=== PATIENT | female | born 2000 | race Caucasian/White ===

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

== ENCOUNTER 2020-01-22 01:02 | Emergency (ER) | payer MEDICAID ==
[2020-01-22] MEDS ORDERED: Diphtheria,Pertussis(Acell),Tetanus Vaccine 0.5 ML Syringe IM ONE (01:30)
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
--- NOTE | 2020-01-22 02:41 | CR ---
INDICATION: Puncture wound TECHNIQUE: Three views left hand COMPARISON: None FINDINGS: Bones: Alignment is normal. No fractures or bone lesions. Joint spaces: Unremarkable. Soft tissues: Unremarkable. IMPRESSION: No radiopaque foreign bodies. Dictated by Rodrick Lomeli MD @ 01/22/2020 2:39:29 AM Dictated by: Rodrick Lomeli MD @ 01/22/2020 02:39:35 (Electronically Signed)
[2020-01-22 02:55] VITALS: BP 112/70; PULSE 80
== END 2020-01-22 02:53 | disposition home or self-care (01) ==
LOC: MW.ED 01:02
DX: S61.432D Puncture wound without foreign body of left hand, subsequent encounter (principal); Z88.1 Allergy status to other antibiotic agents; Z88.8 Allergy status to other drugs, medicaments and biological substances; Z79.899 Other long term (current) drug therapy; Z23 Encounter for immunization; W45.8XXD Other foreign body or object entering through skin, subsequent encounter
CPT/HCPCS: 73130-26-LT; 73130-LT; 90471; 90715; 99283-25; 99284

== ENCOUNTER 2020-01-22 06:02 | Emergency (ER) | payer MEDICAID ==
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
[2020-01-22 06:59] VITALS: BP 118/76; PULSE 96
== END 2020-01-22 06:40 | disposition home or self-care (01) ==
LOC: MW.ED 06:02
DX: S61.432D Puncture wound without foreign body of left hand, subsequent encounter (principal); Z88.1 Allergy status to other antibiotic agents; Z88.8 Allergy status to other drugs, medicaments and biological substances; Z79.899 Other long term (current) drug therapy; W22.8XXD Striking against or struck by other objects, subsequent encounter
CPT/HCPCS: 99283

== ENCOUNTER 2020-06-29 13:52 | Emergency (ER) | payer MEDICAID ==
--- NOTE | 2020-06-29 14:06 | EDM.PDOC ---
ED HPI GENERAL MEDICAL PROBLEM - General Chief Complaint: Chest Pain Stated Complaint: CHEST PAINS Time Seen by Provider: 06/29/20 14:00 Source of Information: Reports: Patient History Limitations: Reports: No Limitations - History of Present Illness INITIAL COMMENTS - FREE TEXT/NARRATIVE: HISTORY AND PHYSICAL: History of present illness: Patient is a 19-year-old female who presents to the emergency room with complaints of midsternal chest pain x2 days. She states the pain is constant but worse with taking in deep breaths. She has had a dry nonproductive cough, infrequent. Patient denies any fever, chills, headache, change in vision, syncope or near syncope. Denies any neck stiffness/pain, back pain, abdominal pain, nausea, vomiting, diarrhea, constipation or dysuria. Has not noted any blood in urine or stool. She denies any concern of . Patient has been eating and drinking appropriately. Review of systems: As per history of present illness and below otherwise all systems reviewed and negative. Past medical history: As per history of present illness and as reviewed below otherwise noncontributory. Surgical history: As per history of present illness and as reviewed below otherwise noncontributory. Social history: See social history for further information Family history: As per history of present illness and as reviewed below otherwise noncontributory. Physical exam: General: Well developed and well nourished. Alert and orientated x 3. Nontoxic in appearance and in no acute distress. Vital signs are stable and have been reviewed by me. Nursing notes were reviewed. HEENT: Atraumatic, normocephalic, pupils equal and reactive bilaterally, negative for conjunctival pallor or scleral icterus, mucous membranes moist, TMs normal bilaterally, throat clear, neck supple, nontender, trachea midline. No drooling or trismus noted. No meningeal signs. No hot potato voice noted. Lungs: Clear to auscultation, breath sounds equal bilaterally, chest nontender. Normal work of breathing, no accessory muscles used. Heart: S1S2, regular rate and rhythm without overt murmur Abdomen: Soft, nondistended, nontender. Negative for masses or hep atosplenomegaly. Negative for costovertebral tenderness. Skin: Intact, warm, dry. No lesions or rashes noted. Hematologic: No petechiae or purpra. Mucosa appropriate color and normal nail bed color and refill. Extremities: Atraumatic, moves all extremities per self without difficulty or deficits, negative for cords or calf pain. Neurovascular unremarkable. Neuro: Awake, alert, oriented. Cranial nerves II through XII unremarkable. Cerebellum unremarkable. Motor and sensory unremarkable throughout. Exam nonfocal. Psychiatric: Mood and affect are appropriate. Normal thought process. Answering questions appropriately. Notes: Lab work, EKG, chest x-ray and COVID-19 are normal. Vital signs remained stable. I have spoken with the patient/caregiver and discussed today's findings, in addition to providing specific details for plan of care. Reassessment at the time of disposition demonstrates that the patient is in no acute distress. The patient is stable for discharge, counseling was provided and we discussed in great detail signs and symptoms that would prompt them to return to the Emergency Department. Medication, follow up and supportive care measures were reviewed and discussed. Voices understanding and is agreeable to plan of care. Denies any further questions or concerns at this time. Diagnostics: CBC, CMP, Troponin, EKG, COVID Therapeutics: None Prescription: None Impression: Chest Pain, non-specific Plan: 1. Today your lab work, EKG, chest x-ray and COVID are normal. 2. Alternate Tylenol and Ibuprofen as needed for pain management. 3. We encourage you to follow up with your primary care provider and/or recommended specialist in the next few days for re-evaluation and further care/management. If your symptoms should worsen, new symptoms develop or any of the signs and symptoms we discussed should arise please return to the emergency room or call 911 (if needed). Definitive disposition and diagnosis as appropriate pending reevaluation and review of above. chest Pain Score (Numeric/FACES): 5 - Related Data Allergies Allergy/AdvReac Type Severity Reaction Status Date / Time amoxicillin trihydrate Allergy Hives Verified 06/29/20 14:03 [From Augmentin] chlorpheniramine Allergy Hives Verified 06/29/20 14:03 [From Triaminic Cold/Cough] dextromethorphan HBr Allergy Hives Verified 06/29/20 14:03 [From Triaminic Cold/Cough] phenylephrine HCl Allergy Hives Verified 06/29/20 14:03 [From Triaminic Cold/Cough] potassium clavulanate Allergy Hives Verified 06/29/20 14:03 [From Augmentin] pseudoephedrine HCl Allergy Hives Verified 06/29/20 14:03 [From Triaminic Cold/Cough] Home Meds: Home Meds . 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 Musculoskeletal History: Reports: None Neurological History: Reports: None Psychiatric History: Reports: None Endocrine/Metabolic History: Reports: None Hematologic History: Reports: None Immunologic History: Reports: None Oncologic (Cancer) History: Reports: None Dermatologic History: Reports: None - Infectious Disease History Infectious Disease History: Reports: Chicken Pox Other Infectious Disease History: childhood - Past Surgical History Head Surgeries/Procedures: Reports: None HEENT Surgical History: Reports: Oral Surgery, Tonsillectomy Cardiovascular Surgical History: Reports: None Respiratory Surgical History: Reports: None GI Surgical History: Reports: None Female Surgical History: Reports: None Endocrine Surgical History: Reports: None Neurological Surgical History: Reports: None Musculoskeletal Surgical History: Reports: None Oncologic Surgical History: Reports: None Dermatological Surgical History: Reports: None Social & Family History - Family History Family Medical History: Noncontributory - Caffeine Use Caffeine Use: Reports: None ED ROS GENERAL - Review of Systems Review Of Systems: Comprehensive ROS is negative, except as noted in HPI. ED EXAM, GENERAL - Physical Exam Exam: See Below (See dictation) Course - Vital Signs Last Recorded V/S: Last Vital Signs Temp 98.3 F 06/29/20 14:04 Pulse 77 06/29/20 14:04 Resp 18 06/29/20 14:04 BP 117/70 06/29/20 14:04 Pulse Ox 98 06/29/20 14:04 - Orders/Labs/Meds Orders: Active Orders 24 hr Category Date Time Status EKG Documentation Completion [RC] STAT Care 06/29/20 14:03 Active CORONAVIRUS COVID-19 PCR PHL Stat Lab 06/29/20 14:13 Received Labs: Laboratory Tests 06/29/20 06/29/20 06/29/20 Range/Units 14:13 14:20 14:20 WBC 5.67 (4.0-11.0) K/uL RBC 4.70 (4.30-5.90) M/uL Hgb 13.9 (12.0-16.0) g/dL Hct 40.7 (36.0-46.0) % MCV 86.6 (80.0-98.0) fL MCH 29.6 (27.0-32.0) pg MCHC 34.2 (31.0-37.0) g/dL RDW Std Deviation 37.9 (28.0-62.0) fl RDW Coeff of Alessio 12 (11.0-15.0) % Plt Count 194 (150-400) K/uL MPV 10.00 (7.40-12.00) fL Neut % (Auto) 50.6 (48.0-80.0) % Lymph % (Auto) 40.2 H (16.0-40.0) % Dare % (Auto) 7.6 (0.0-15.0) % Eos % (Auto) 1.2 (0.0-7.0) % Baso % (Auto) 0.4 (0.0-1.5) % Neut # (Auto) 2.9 (1.4-5.7) K/uL Lymph # (Auto) 2.3 (0.6-2.4) K/uL Dare # (Auto) 0.4 (0.0-0.8) K/uL Eos # (Auto) 0.1 (0.0-0.7) K/uL Baso # (Auto) 0.0 (0.0-0.1) K/uL Nucleated RBC % 0.0 /100WBC Nucleated RBCs # 0 K/uL Sodium 138 (136-145) mmol/L Potassium 4.2 (3.5-5.1) mmol/L Chloride 103 (98-107) mmol/L Carbon Dioxide 25.3 (21.0-32.0) mmol/L BUN 10 (7.0-18.0) mg/dL Creatinine 0.7 (0.6-1.0) mg/dL Est Cr Clr Drug Dosing 111.62 mL/min Estimated GFR (MDRD) > 60.0 ml/min Glucose 89 (74-106) mg/dL Calcium 9.0 (8.5-10.1) mg/dL Total Bilirubin 1.3 H (0.2-1.0) mg/dL AST 14 L (15-37) IU/L ALT 16 (14-63) IU/L Alkaline Phosphatase 63 (46-116) U/L Troponin I < 0.050 (0.000-0.056) ng/mL Total Protein 7.1 (6.4-8.2) g/dL Albumin 4.3 (3.4-5.0) g/dL Globulin 2.8 (2.6-4.0) g/dL Albumin/Globulin Ratio 1.5 (0.9-1.6) SARS CoV-2 RNA Rapid RENARD NEGATIVE (NEGATIVE) Departure - Departure Time of Disposition: 15:09 Disposition: Home, Self-Care 01 Clinical Impression: Nonspecific chest pain Instructions: Nonspecific Chest Pain, Adult, [id number] Referrals: PCP,None [Primary Care Provider] - Forms: ED Department Discharge Additional Instructions: The following information is given to patients seen in the emergency department who are being discharged to home. This information is to outline your options for follow-up care. We provide all patients seen in our emergency department with a follow-up referral. The need for follow-up, as well as the timing and circumstances, are variable depending upon the specifics of your emergency department visit. If you don't have a primary care physician on staff, we will provide you with a referral. We always advise you to contact your personal physician following an emergency department visit to inform them of the circumstance of the visit and for follow-up with them and/or the need for any referrals to a consulting specialist. The emergency department will also refer you to a specialist when appropriate. This referral assures that you have the opportunity for follow-up care with a specialist. All of these measure are taken in an effort to provide you with o ptimal care, which includes your follow-up. Under all circumstances we always encourage you to contact your private physician who remains a resource for coordinating your care. When calling for follow-up care, please make the office aware that this follow-up is from your recent emergency room visit. If for any reason you are refused follow-up, please contact the [facility] Emergency Department at and asked to speak to the emergency department charge nurse. [facility] [address] [place] [address] [facility] [address] [place] [address] Thank you for choosing the [facility] emergency department in [place] for your medical needs today. It was a pleasure caring for you. Today you were seen in the emergency department for chest pain. 1. Today your lab work, EKG, chest x-ray and COVID are normal. 2. Alternate Tylenol and Ibuprofen as needed for pain management. 3. We encourage you to follow up with your primary care provider and/or recommended specialist in the next few days for re-evaluation and further care/management. If your symptoms should worsen, new symptoms develop or any of the signs and symptoms we discussed should arise please return to the emergency room or call 911 (if needed). Sepsis Event Note (ED) - Focused Exam Vital Signs: Vital Signs Temp Pulse Resp BP Pulse Ox 06/29/20 14:04 98.3 F 77 18 117/70 98 - My Orders Last 24 Hours: My Active Orders 06/29/20 14:03 EKG Documentation Completion [RC] STAT 06/29/20 14:13 CORONAVIRUS COVID-19 PCR PHL Stat - Assessment/Plan Last 24 Hours: My Active Orders 06/29/20 14:03 EKG Documentation Completion [RC] STAT 06/29/20 14:13 CORONAVIRUS COVID-19 PCR PHL Stat
[2020-06-29 14:07] VITALS: BP 117/70; PULSE 77
--- NOTE | 2020-06-29 14:57 | CR ---
INDICATION: Chest pain COMPARISON: Synovial portable study TECHNIQUE: September 17, 2019 FINDINGS: TUBES AND LINES: None. HEART AND MEDIASTINUM: The heart size is normal. The mediastinal contour appears normal for patient age. LUNGS AND PLEURAL SPACES: The lungs appear normal.There pleural spaces are unremarkable. OSSEOUS STRUCTURES: Age-appropriate appearance. No acute focal finding. IMPRESSION: No evidence of active pulmonary disease. Dictated by Iain Baltazar MD @ Jun 29 2020 2:54PM Signed by Dr. Iain Baltazar @ Jun 29 2020 2:55PM
[2020-06-29 14:58] LABS: BLOOD UREA NITROGEN,BUN 10 mg/dL (7.0-18.0); CARBON DIOXIDE,CO2 25.3 mmol/L (21.0-32.0); CHLORIDE,CL 103 mmol/L (98-107); GLUCOSE RANDOM 89 mg/dL (74-106); POTASSIUM,K 4.2 mmol/L (3.5-5.1); SODIUM,NA 138 mmol/L (136-145)
[2020-06-29] MEDS ORDERED: Ketorolac 60 MG/2 ML SDV IM ONE (15:11)
--- NOTE | 2020-06-29 15:16 | PCM.SN.2 ---
- Free Text/Narrative Note: EKG: As interpreted by ER physician: Ewelina: Nonspecific ST-T wave abnormalities Normal axis No evidence of ST elevation PR Normal sinus rhythm heart rate of 85
== END 2020-06-29 15:47 | disposition home or self-care (01) ==
LOC: MW.ED 13:52
DX: R07.2 Precordial pain (principal); Z20.828 Contact with and (suspected) exposure to other viral communicable diseases; Z88.1 Allergy status to other antibiotic agents; Z88.8 Allergy status to other drugs, medicaments and biological substances
CPT/HCPCS: 36415; 71045; 80053; 84484; 85025; 87635; 93005; 96372; 99285; J1885; U0002

== ENCOUNTER 2021-02-16 00:02 | Emergency (ER) | payer MEDICAID, OTHER ==
[2021-02-16 00:47] VITALS: BP 118/68; PULSE 81
--- NOTE | 2021-02-16 00:57 | EDM.PDOC ---
ED HPI GENERAL MEDICAL PROBLEM - General Chief Complaint: Lower Extremity Injury/Pain Stated Complaint: PAIN IN BOTH LEGS Time Seen by Provider: 02/16/21 00:45 - History of Present Illness INITIAL COMMENTS - FREE TEXT/NARRATIVE: History of present illness: [] Patient has pain in the left thigh and his left calf. It happens off and on for months. The patient has some pain in the right to both of her legs feel bloated. She has a family history of DVT. She has no personal history of DVT. Review of systems: As per history of present illness and below otherwise all systems reviewed and negative. Past medical history: As per history of present illness and as reviewed below otherwise noncontributory. Surgical history: As per history of present illness and as reviewed below otherwise noncontributory. Social history: No reported history of drug or alcohol abuse. Family history: As per history of present illness and as reviewed below otherwise noncontributory. Physical exam: Constitutional - well developed, well-nourished and in no acute distress HEENT - normocephalic, no evidence of trauma - external nose and mouth normal - no mass in neck and no JVD - mucosae moist EYES - full EOM, PERRL, no icterus - no evidence of inflammation, injection, or drainage Respiratory - no respiratory distress, equal bilateral expansion Musculoskeletal no gross deformity of long bones or joints - no tenderness, swelling or edema Neurologic - Alert and oriented times four - CN II-XII grossly intact - motor sensory and coordination symmetrically normal Psychiatric - appropriate mood and affect with normal thought content Hematologic - No petechiae or purpura - mucosa appropriate color and sclera not pale - normal nail bed color and refill Integument - no rash or evidence of trauma - normal turgor Diagnostics: [] Therapeutics: [] Impression: [] Plan: [] Definitive disposition and diagnosis as appropriate pending reevaluation and review of above. Bilateral Leg Pain Score (Numeric/FACES): 7 - Related Data Allergies Allergy/AdvReac Type Severity Reaction Status Date / Time amoxicillin trihydrate Allergy Hives Verified 02/16/21 00:48 [From Augmentin] chlorpheniramine Allergy Hives Verified 02/16/21 00:48 [From Triaminic Cold/Cough] dextromethorphan HBr Allergy Hives Verified 02/16/21 00:48 [From Triaminic Cold/Cough] phenylephrine HCl Allergy Hives Verified 02/16/21 00:48 [From Triaminic Cold/Cough] potassium clavulanate Allergy Hives Verified 02/16/21 00:48 [From Augmentin] pseudoephedrine HCl Allergy Hives Verified 02/16/21 00:48 [From Triaminic Cold/Cough] Home Meds: Home Meds . 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 Musculoskeletal History: Reports: None Neurological History: Reports: None Psychiatric History: Reports: None Endocrine/Metabolic History: Reports: None Hematologic History: Reports: None Immunologic History: Reports: None Oncologic (Cancer) History: Reports: None Dermatologic History: Reports: None - Infectious Disease History Infectious Disease History: Reports: Chicken Pox Other Infectious Disease History: childhood - Past Surgical History Head Surgeries/Procedures: Reports: None HEENT Surgical History: Reports: Oral Surgery, Tonsillectomy Cardiovascular Surgical History: Reports: None Respiratory Surgical History: Reports: None GI Surgical History: Reports: None Female Surgical History: Reports: None Endocrine Surgical History: Reports: None Neurological Surgical History: Reports: None Musculoskeletal Surgical History: Reports: None Oncologic Surgical History: Reports: None Dermatological Surgical History: Reports: None Social & Family History - Family History Family Medical History: No Pertinent Family History - Tobacco Use Tobacco Use Status *Q: Never Tobacco User Second Hand Smoke Exposure: No - Caffeine Use Caffeine Use: Reports: None - Recreational Drug Use Recreational Drug Use: No Review of Systems - Review of Systems Review Of Systems: Comprehensive ROS is negative, except as noted in HPI. ED EXAM, GENERAL - Physical Exam Exam: See Below Free Text/Narrative:: My physical exam is in the HPI Course - Vital Signs Last Recorded V/S: Last Vital Signs Temp 36.1 C 02/16/21 00:43 Pulse 81 02/16/21 00:43 Resp 14 02/16/21 00:43 BP 118/68 02/16/21 00:43 Pulse Ox 100 02/16/21 00:43 - Orders/Labs/Meds Labs: Laboratory Tests 02/16/21 02/16/21 Range/Units 01:05 01:10 D-Dimer, Quantitative 0.33 (0.0-0.50) mg/L FEU Urine HCG, Qual NEGATIVE (NEGATIVE) Departure - Departure Time of Disposition: Disposition: Home, Self-Care 01 Condition: Good Clinical Impression: Leg pain - Discharge Information Referrals: Emerita Kim MD [Primary Care Provider] - Forms: ED Department Discharge Additional Instructions: You have pain in your legs with a feeling of fullness. You should have an ultrasound done and an outpatient prescription was written. Your D-dimer and test are negative. It is unlikely they have a blood clot but with a family history I think for completeness you should have the ultrasound done. Otherwise anti-inflammatory medicine is recommended and rest. Follow-up with primary care. [facility] [address] [place] [address] [place] [address] The following information is given to patients seen in the emergency department who are being discharged to home. This information is to outline your options for follow-up care. We provide all patients seen in our emergency department with a follow-up referral. The need for follow-up, as well as the timing and circumstances, are variable depending upon the specifics of your emergency department visit. If you don't have a primary care physician on staff, we will provide you with a referral. We always advise you to contact your personal physician following an emergency department visit to inform them of the circumstance of the visit and for follow-up with them and/or the need for any referrals to a consulting specialist. The emergency department will also refer you to a specialist when appropriate. This referral assures that you have the opportunity for follow-up care with a specialist. All of these measure are taken in an effort to provide you with optimal care, which includes your follow-up. Under all circumstances we always encourage you to contact your private physician who remains a resource for coordinating your care. When calling for follow-up care, please make the office aware that this follow-up is from your recent emergency room visit. If for any reason you are refused follow-up, please contact the [facility] Emergency Department at and asked to speak to the emergency department charge nurse. Sepsis Event Note (ED) - Evaluation Sepsis Screening Result: No Definite Risk - Focused Exam Vital Signs: Vital Signs Temp Pulse Resp BP Pulse Ox 02/16/21 00:43 36.1 C 81 14 118/68 100
== END 2021-02-16 02:04 | disposition home or self-care (01) ==
LOC: MW.ED 00:02
DX: M79.605 Pain in left leg (principal); Z88.0 Allergy status to penicillin; Z88.6 Allergy status to analgesic agent
CPT/HCPCS: 36415; 81025; 85379; 99283

== ENCOUNTER 2021-03-14 13:23 | Emergency (ER) | payer SELFPAY ==
--- NOTE | 2021-03-14 13:58 | EDM.PDOC ---
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 Patient is to compress it as but not saw the FAMILY SERVICES ASSISTANT doctor. Patient reports that the pain comes and goes not associated with anything she has not been moving around much due to her morning sickness. Says she still tolerating p.o. has been taking Zofran at home that she got from a family physician. Denies any vaginal bleeding or discharge. Patient states the pain is achy does not radiate and has no other associated symptoms. Left abdominal Pain Score (Numeric/FACES): 7 - Related Data Allergies Allergy/AdvReac Type Severity Reaction Status Date / Time amoxicillin trihydrate Allergy Hives Verified 03/14/21 13:40 [From Augmentin] chlorpheniramine Allergy Hives Verified 03/14/21 13:40 [From Triaminic Cold/Cough] dextromethorphan HBr Allergy Hives Verified 03/14/21 13:40 [From Triaminic Cold/Cough] phenylephrine HCl Allergy Hives Verified 03/14/21 13:40 [From Triaminic Cold/Cough] potassium clavulanate Allergy Hives Verified 03/14/21 13:40 [From Augmentin] pseudoephedrine HCl Allergy Hives Verified 03/14/21 13:40 [From Triaminic Cold/Cough] Home Meds: Home Meds . 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 History: Reports: None Musculoskeletal History: Reports: None Neurological History: Reports: None Psychiatric History: Reports: None Endocrine/Metabolic History: Reports: None Hematologic History: Reports: None Immunologic History: Reports: None Oncologic (Cancer) History: Reports: None Dermatologic History: Reports: None - Infectious Disease History Infectious Disease History: Reports: Chicken Pox Other Infectious Disease History: childhood - Past Surgical History Head Surgeries/Procedures: Reports: None HEENT Surgical History: Reports: Oral Surgery, Tonsillectomy Cardiovascular Surgical History: Reports: None Respiratory Surgical History: Reports: None GI Surgical History: Reports: None Female Surgical History: Reports: None Endocrine Surgical History: Reports: None Neurological Surgical History: Reports: None Musculoskeletal Surgical History: Reports: None Oncologic Surgical History: Reports: None Dermatological Surgical History: Reports: None Social & Family History - Family History Family Medical History: No Pertinent Family History - Tobacco Use Tobacco Use Status *Q: Never Tobacco User - Caffeine Use Caffeine Use: Reports: None - Recreational Drug Use Recreational Drug Use: No ED ROS GENERAL - Review of Systems Review Of Systems: See Below Constitutional: Reports: No Symptoms HEENT: Reports: No Symptoms Respiratory: Reports: No Symptoms Cardiovascular: Reports: No Symptoms Endocrine: Reports: No Symptoms GI/Abdominal: Reports: Abdominal Pain : Reports: No Symptoms Musculoskeletal: Reports: No Symptoms Skin: Reports: No Symptoms Neurological: Reports: No Symptoms Psychiatric: Reports: No Symptoms Hematologic/Lymphatic: Reports: No Symptoms Immunologic: Reports: No Symptoms ED EXAM - Physical Exam Exam: See Below Exam Limited By: No Limitations General Appearance: Alert, WD/WN, No Apparent Distress Respiratory/Chest: No Respiratory Distress, Lungs Clear Cardiovascular: Normal Peripheral Pulses, Regular Rate, Rhythm GI/Abdominal Exam: Normal Bowel Sounds, Soft, Non-Tender Neurological: Alert, Oriented Course - Vital Signs Last Recorded V/S: Last Vital Signs Temp 98.9 F 03/14/21 14:32 Pulse 80 03/14/21 14:32 Resp 15 03/14/21 14:32 BP 117/72 03/14/21 14:32 Pulse Ox 97 03/14/21 14:32 - Orders/Labs/Meds Labs: Laboratory Tests 03/14/21 03/14/21 03/14/21 Range/Units 13:30 14:41 14:41 WBC 8.02 (4.0-11.0) K/uL RBC 4.76 (4.30-5.90) M/uL Hgb 13.9 (12.0-16.0) g/dL Hct 39.4 (36.0-46.0) % MCV 82.8 (80.0-98.0) fL MCH 29.2 (27.0-32.0) pg MCHC 35.3 (31.0-37.0) g/dL RDW Std Deviation 36.9 (28.0-62.0) fl RDW Coeff of Alessio 12 (11.0-15.0) % Plt Count 200 (150-400) K/uL MPV 9.70 (7.40-12.00) fL Neut % (Auto) 66.0 (48.0-80.0) % Lymph % (Auto) 25.9 (16.0-40.0) % [place] % (Auto) 7.1 (0.0-15.0) % Eos % (Auto) 0.6 (0.0-7.0) % Baso % (Auto) 0.4 (0.0-1.5) % Neut # (Auto) 5.3 (1.4-5.7) K/uL Lymph # (Auto) 2.1 (0.6-2.4) K/uL [place] # (Auto) 0.6 (0.0-0.8) K/uL Eos # (Auto) 0.1 (0.0-0.7) K/uL Baso # (Auto) 0.0 (0.0-0.1) K/uL Nucleated RBC % 0.0 /100WBC Nucleated RBCs # 0 K/uL Sodium 136 (136-145) mmol/L Potassium 4.1 (3.5-5.1) mmol/L Chloride 101 (98-107) mmol/L Carbon Dioxide 27.8 (21.0-32.0) mmol/L BUN 5 L (7.0-18.0) mg/dL Creatinine 0.6 (0.6-1.0) mg/dL Est Cr Clr Drug Dosing 129.15 mL/min Estimated GFR (MDRD) > 60.0 ml/min Glucose 87 (74-106) mg/dL Calcium 8.8 (8.5-10.1) mg/dL Total Bilirubin 0.7 (0.2-1.0) mg/dL AST 15 (15-37) IU/L ALT 31 (14-63) IU/L Alkaline Phosphatase 58 (46-116) U/L Total Protein 7.0 (6.4-8.2) g/dL Albumin 4.2 (3.4-5.0) g/dL Globulin 2.8 (2.6-4.0) g/dL Albumin/Globulin Ratio 1.5 (0.9-1.6) HCG, Quant 86805.0 mIU/mL Urine Color YELLOW Urine Appearance CLEAR Urine pH 6.5 (5.0-8.0) Ur Specific [place] 1.020 (1.001-1.035) Urine Protein NEGATIVE (NEGATIVE) mg/dL Urine Glucose (UA) NEGATIVE (NEGATIVE) mg/dL Urine Ketones NEGATIVE (NEGATIVE) mg/dL Urine Occult Blood NEGATIVE (NEGATIVE) Urine Nitrite NEGATIVE (NEGATIVE) Urine Bilirubin NEGATIVE (NEGATIVE) Urine Urobilinogen 0.2 (<2.0) EU/dL Ur Leukocyte Esterase NEGATIVE (NEGATIVE) - Re-Assessments/Exams Free Text/Narrative Re-Assessment/Exam: 03/14/21 15:45 Patient beta drawn 80,000+. Patient Ultrasound shows IUP. Patient has no UTI on UA. Patient will be discharged follow-up with FAMILY SERVICES ASSISTANT as outpatient. Departure - Departure Time of Disposition: 15:46 Disposition: Home, Self-Care 01 Condition: Good Clinical Impression: related abdominal pain of lower quadrant, antepartum - Discharge Information *PRESCRIPTION DRUG MONITORING PROGRAM REVIEWED*: Not Applicable *COPY OF PRESCRIPTION DRUG MONITORING REPORT IN PATIENT YUE: Not Applicable Instructions: Abdominal Pain During Referrals: PCP,Unknown [Primary Care Provider] - Forms: ED Department Discharge Additional Instructions: The following information is given to patients seen in the emergency department who are being discharged to home. This information is to outline your options for follow-up care. We provide all patients seen in our emergency department with a follow-up referral. The need for follow-up, as well as the timing and circumstances, are variable depending upon the specifics of your emergency department visit. If you don't have a primary care physician on staff, we will provide you with a referral. We always advise you to contact your personal physician following an emergency department visit to inform them of the circumstance of the visit and for follow-up with them and/or the need for any referrals to a consulting specialist. The emergency department will also refer you to a specialist when appropriate. This referral assures that you have the opportunity for follow-up care with a specialist. All of these measure are taken in an effort to provide you with optimal care, which includes your follow-up. Under all circumstances we always encourage you to contact your private physician who remains a resource for coordinating your care. When calling for follow-up care, please make the office aware that this follow-up is from your recent emergency room visit. If for any reason you are refused follow-up, please contact the [facility] Emergency Department at and asked to speak to the emergency department charge nurse. Please follow up with your primary care physician. If you do not have a primary care physician, see below: [facility] [address] [place] [id number] [facility] [address] [place] [id number] You were seen today for left lower abdominal pain. We did ultrasound shows the baby is in the right spot your ovaries are normal there is no sign cause of abdominal pain. We also checked a urine did not show any urinary tract infections. Recommend you follow-up with your FAMILY SERVICES ASSISTANT if any other concerning signs or symptoms to return to the ED. Sepsis Event Note (ED) - Evaluation Sepsis Screening Result: No Definite Risk - Focused Exam Vital Signs: Vital Signs Temp Pulse Resp BP Pulse Ox 03/14/21 14:32 98.9 F 80 15 117/72 97 03/14/21 13:35 97.6 F 94 17 132/86 98 - Assessment/Plan Plan: Patient is a 20-year-old female states he is 8 weeks presents today for lower left abdominal pain. Patient has no abdominal tenderness on exam has some morning sickness but is tolerating p.o. with her Zofran. No vaginal bleeding or discharge. Will obtain basic labs pelvic ultrasound and reassess.
--- NOTE | 2021-03-14 15:06 | US ---
INDICATION: Left lower quadrant pain, positive test TECHNIQUE: Ultrasound OB pelvis transvaginal. Real-time segura-scale imaging of the pelvis was performed. COMPARISON: None FINDINGS: Sonographic imaging demonstrates a single living intrauterine gestation. The embryo demonstrates a regular cardiac rate measuring 120 beats per minute. The embryo`s crown rump length measurement of 0.8 cm corresponds to a gestational age of 6 weeks 6 days with a sonographic due date of October 28, 2021. There is a normal appearing yolk sac. There are no gross abnormalities noted within the embryo at this early state of development. The placenta has not yet developed. There is no sign of perigestational hemorrhage. There is likely a corpus luteum cyst within the right ovary. The ovaries are of normal size. There are no suspicious fluid collections noted in the cul-de-sac. IMPRESSION: Single viable intrauterine measuring 6 weeks 6 days by ultrasound measurements. No abnormalities seen. Dictated by Bin Veliz MD @ 03/14/2021 3:03:[address] Bin Veliz @ Mar 14 2021 3:03PM
[2021-03-14 15:32] LABS: BLOOD UREA NITROGEN,BUN 5 mg/dL (7.0-18.0); CARBON DIOXIDE,CO2 27.8 mmol/L (21.0-32.0); CHLORIDE,CL 101 mmol/L (98-107); GLUCOSE RANDOM 87 mg/dL (74-106); POTASSIUM,K 4.1 mmol/L (3.5-5.1); SODIUM,NA 136 mmol/L (136-145)
[2021-03-14 19:27] VITALS: BP 104/65; PULSE 74
== END 2021-03-14 16:15 | disposition home or self-care (01) ==
LOC: MW.ED 13:23
DX: O99.891 Other specified diseases and conditions complicating pregnancy (principal); R10.32 Left lower quadrant pain; Z3A.08 8 weeks gestation of pregnancy; Z88.0 Allergy status to penicillin; Z88.8 Allergy status to other drugs, medicaments and biological substances
CPT/HCPCS: 36415; 76801; 76801-26; 80053; 81003; 84702; 85025; 99284-25

== ENCOUNTER 2021-06-09 22:07 | Emergency (ER) | payer MEDICAID ==
[2021-06-09 22:18] VITALS: BP 123/72; PULSE 101
--- NOTE | 2021-06-09 22:53 | EDM.PDOC ---
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 Patient has any vaginal bleeding. Patient has any recent fevers, shakes, chills, nausea, vomiting, diarrhea, dysuria, frequency, urgency. Patient reports she is not sexually active at this time. Patient reports that she has felt decreased activity. Review of systems: As per history of present illness and below otherwise all systems reviewed and negative. Past medical history: As per history of present illness and as reviewed below otherwise noncontributory. Surgical history: As per history of present illness and as reviewed below otherwise noncontributory. Social history: No reported history of drug abuse. Family history: As per history of present illness and as reviewed below otherwise noncontributory. Physical exam: This patient was seen and evaluated during the 2019 SARS-CoV-2 novel coronavirus pandemic period. Community viral transmission is ongoing at time of this encounter and the emergency department is operating under pandemic response procedures. Constitutional: Patient is oriented to person, place, and time. Appears well- developed and well-nourished. No distress. HEENT: Moist mucous membranes Head: Normocephalic and atraumatic Eyes: Right eye exhibits no discharge. Left eye exhibits no discharge. No scleral icterus Neck: Normal range of motion. No tracheal deviation present. Cardiovascular: Normal rate and regular rhythm. Pulmonary: Effort normal, no respiratory distress. Abd: Soft, nondistended, no rebound/guarding, no psoas or obturator signs, no tenderness at Mcberney's point, no Carver's sign. Pt does not present with an exam that would be consistent with an acute surgical abdomen at this time. Patient was tenderness to palpation to her left and right pelvic region. Pelvic exam deferred. Patient denies any vaginal bleeding. Musculoskeletal: Normal range of motion Neurologic: Alert and oriented to person, place and time. Skin: [place], warm and dry. Psychiatric: Normal mood and affect. Behavior is normal. Judgment and thought content normal. Nursing note and vital signs have been reviewed Diagnostics: Bedside ultrasound reveals heart activity with a heart rate of 140 to 150 bpm. Fetus has good movement and adequate amniotic fluid. No gross abnormality detected on gross bedside ultrasound. Urinalysis normal with no evidence of infection. Therapeutics: [] Assessment and plan: 20-year-old female who presents ER today secondary to pelvic pain while 19 weeks 6 days . Patient is clinically hemodynamically stable at this time. Ultrasound reveals normal heart activity and movement. Patient was reassured. Patient feels comfortable with the plan to be discharged home and follow-up with her OB doctor as scheduled. Patient was instructed to take acetaminophen as needed for pain or discomfort. Reassessment at the time of disposition demonstrates that the patient is in no acute distress. The patient has remained stable throughout the entire ED visit and is without objective evidence for acute process requiring urgent intervention or hospitalization. The patient is stable for discharge, counseling is provided as documented above, discussed symptomatic treatment and specific conditions for return. I have spoken with the patient/caregiver and discussed todays findings, in addition to providing specific details for the plan of care. Questions are answered and there is agreement with the plan. Definitive disposition and diagnosis as appropriate pending reevaluation and review of above. Left Lower Abdomen Pain Score (Numeric/FACES): 8 - Related Data Allergies Allergy/AdvReac Type Severity Reaction Status Date / Time amoxicillin trihydrate Allergy Hives Verified 06/09/21 22:18 [From Augmentin] chlorpheniramine Allergy Hives Verified 06/09/21 22:18 [From Triaminic Cold/Cough] dextromethorphan HBr Allergy Hives Verified 06/09/21 22:18 [From Triaminic Cold/Cough] phenylephrine HCl Allergy Hives Verified 06/09/21 22:18 [From Triaminic Cold/Cough] potassium clavulanate Allergy Hives Verified 06/09/21 22:18 [From Augmentin] pseudoephedrine HCl Allergy Hives Verified 06/09/21 22:18 [From Triaminic Cold/Cough] Home Meds: Home Meds . 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 Musculoskeletal History: Reports: None Neurological History: Reports: None Psychiatric History: Reports: None Endocrine/Metabolic History: Reports: None Hematologic History: Reports: None Immunologic History: Reports: None Oncologic (Cancer) History: Reports: None Dermatologic History: Reports: None - Infectious Disease History Infectious Disease History: Reports: Chicken Pox Other Infectious Disease History: childhood - Past Surgical History Head Surgeries/Procedures: Reports: None HEENT Surgical History: Reports: Oral Surgery, Tonsillectomy Cardiovascular Surgical History: Reports: None Respiratory Surgical History: Reports: None GI Surgical History: Reports: None Female Surgical History: Reports: None Endocrine Surgical History: Reports: None Neurological Surgical History: Reports: None Musculoskeletal Surgical History: Reports: None Oncologic Surgical History: Reports: None Dermatological Surgical History: Reports: None Social & Family History - Family History Family Medical History: No Pertinent Family History - Tobacco Use Tobacco Use Status *Q: Never Tobacco User Second Hand Smoke Exposure: No - Caffeine Use Caffeine Use: Reports: None - Recreational Drug Use Recreational Drug Use: No ED ROS GENERAL - Review of Systems Review Of Systems: See Below ED EXAM, GENERAL - Physical Exam Exam: See Below Course - Vital Signs Last Recorded V/S: Last Vital Signs Temp 98.1 F 06/09/21 22:12 Pulse 101 H 06/09/21 22:12 Resp 18 06/09/21 22:12 BP 123/72 06/09/21 22:12 Pulse Ox 99 06/09/21 22:12 - Orders/Labs/Meds Orders: Active Orders 24 hr Category Date Time Status Heart Tones [RC] ASDIRECTED Care 06/09/21 22:12 Active Labs: Laboratory Tests 06/09/21 Range/Units 22:20 Urine Color YELLOW Urine Appearance SLT CLOUDY Urine pH 5.5 (5.0-8.0) Ur Specific [place] >= 1.030 (1.001-1.035) Urine Protein NEGATIVE (NEGATIVE) mg/dL Urine Glucose (UA) NEGATIVE (NEGATIVE) mg/dL Urine Ketones >=80 (NEGATIVE) mg/dL Urine Occult Blood NEGATIVE (NEGATIVE) Urine Nitrite NEGATIVE (NEGATIVE) Urine Bilirubin NEGATIVE (NEGATIVE) Urine Urobilinogen 0.2 (<2.0) EU/dL Ur Leukocyte Esterase NEGATIVE (NEGATIVE) Departure - Departure Time of Disposition: 22:51 Disposition: Home, Self-Care 01 Condition: Good Clinical Impression: Round ligament pain, Abdominal pain affecting - Discharge Information Instructions: Abdominal Pain During , [id number] Referrals: Mandy Haile NP [Primary Care Provider] - Additional Instructions: Your seen and evaluated in the ER today secondary to pelvic pain during . Your urinalysis was normal. Your ultrasound reveals good heart activity and movement. Please keep your appointment as scheduled with your OB doctor to be reevaluated by them for further recommendations. The following information is given to patients seen in the emergency department who are being discharged to home. This information is to outline your options for follow-up care. We provide all patients seen in our emergency department with a follow-up referral. The need for follow-up, as well as the timing and circumstances, are variable depending upon the specifics of your emergency department visit. If you don't have a primary care physician on staff, we will provide you with a referral. We always advise you to contact your personal physician following an emergency department visit to inform them of the circumstance of the visit and for follow-up with them and/or the need for any referrals to a consulting specialist. The emergency department will also refer you to a specialist when appropriate. This referral assures that you have the opportunity for follow-up care with a specialist. All of these measure are taken in an effort to provide you with optimal care, which includes your follow-up. Under all circumstances we always encourage you to contact your private zionan who remains a resource for coordinating your care. When calling for follow-up care, please make the office aware that this follow-up is from your recent emergency room visit. If for any reason you are refused follow-up, please contact the [facility] Emergency Department at and asked to speak to the emergency department charge nurse. [facility] [address] [place] [address] [id number] [address] [address] Sepsis Event Note (ED) - Evaluation Sepsis Screening Result: No Definite Risk - Focused Exam Vital Signs: Vital Signs Temp Pulse Resp BP Pulse Ox 06/09/21 22:12 98.1 F 101 H 18 123/72 99 - My Orders Last 24 Hours: My Active Orders 06/09/21 22:12 Heart Tones [RC] ASDIRECTED - Assessment/Plan Last 24 Hours: My Active Orders 06/09/21 22:12 Heart Tones [RC] ASDIRECTED
== END 2021-06-09 23:13 | disposition home or self-care (01) ==
LOC: MW.ED 22:07
DX: O99.891 Other specified diseases and conditions complicating pregnancy (principal); R10.32 Left lower quadrant pain; Z3A.19 19 weeks gestation of pregnancy; Z88.0 Allergy status to penicillin; Z88.8 Allergy status to other drugs, medicaments and biological substances
CPT/HCPCS: 81003; 99284

== ENCOUNTER 2021-10-29 22:04 | Inpatient (IN) | payer MEDICAID ==
[2021-10-29] MEDS ORDERED: Lidocaine 1% 50 ML MDV INJECT PRN (22:12)
[2021-10-29] MEDS ORDERED: Terbutaline 1 MG/ML SDV SUBCUT PRN (22:12)
[2021-10-29] MEDS ORDERED: Water For Irrigation,Sterile 1,000 ML Container IRR PRN (22:12)
[2021-10-29] MEDS ORDERED: Carboprost Tromethamine 250 MCG/1 ML Amp IM PRN (22:12)
[2021-10-29] MEDS ORDERED: Sodium Chloride 0.9% 10 ML Syringe FLUSH PRN (22:12)
[2021-10-29] MEDS ORDERED: Tranexamic Acid 1,000 MG in Sodium Chloride 0.9% 100 ML IV PRN (22:12)
[2021-10-29] MEDS ORDERED: Butorphanol 1 MG/ML SDV IVPUSH PRN (22:12)
[2021-10-29] MEDS ORDERED: Sodium Chloride 0.9% 2.5 ML Syringe FLUSH PRN (22:12)
[2021-10-29] MEDS ORDERED: Ondansetron 4 MG/2 ML SDV IVPUSH PRN (22:12)
[2021-10-29] MEDS ORDERED: Methylergonovine 0.2 MG/1 ML Amp IM PRN (22:12)
[2021-10-29] MEDS ORDERED: Misoprostol 25 MCG (1/4 of 100 MCG) Tab VAG PRN (22:12)
[2021-10-29] MEDS ORDERED: Misoprostol 200 MCG Tab PO PRN (22:12)
[2021-10-29] MEDS ORDERED: Sodium Chloride 0.9% 20 ML SDV IV PRN (22:12)
[2021-10-29] MEDS ORDERED: Oxytocin/0.9 % Sodium Chloride 30 UNIT/500 ML BAG IV SCH ×2 (22:15)
[2021-10-29] MEDS ORDERED: Nalbuphine 20 MG/1 ML Amp IVPUSH PRN (22:19)
[2021-10-30] MEDS: Lactated Ringers 1,000 ML IV SCH ×4 (04:35→15:19)
[2021-10-30] MEDS ORDERED: ePHEDrine 50 MG/ML SDV IVPUSH PRN ×3 (08:01→09:38)
[2021-10-30] MEDS ORDERED: Ropivacaine 200 MG in Premix Bag 1 BAG EPIDUR SCH (08:15)
[2021-10-30] MEDS ORDERED: Ondansetron 4 MG Tab PO ONE (16:43)
[2021-10-30] MEDS ORDERED: Methylergonovine 0.2 MG/1 ML Amp IM PRN (20:09)
[2021-10-30] MEDS ORDERED: Ibuprofen 400 MG Tab PO PRN (20:09)
[2021-10-30] MEDS ORDERED: Witch Hazel Medicated Pads 40/Jar TOP PRN (20:09)
[2021-10-30] MEDS ORDERED: Acetaminophen 500 MG Tab PO PRN ×2 (20:09)
[2021-10-30] MEDS ORDERED: Lanolin 100% Cream 7 GM Tube TOP PRN (20:09)
[2021-10-30] MEDS ORDERED: Bisacodyl 10 MG Supp RECTAL PRN (20:09)
[2021-10-30] MEDS ORDERED: Tranexamic Acid 1,000 MG in Sodium Chloride 0.9% 100 ML IV PRN (20:09)
[2021-10-30] MEDS ORDERED: Benzocaine/Menthol 20%-0.5% Spray 78 GM Cannister TOP PRN (20:09)
[2021-10-30] MEDS: Ibuprofen 800 MG Tab PO PRN (20:24)
[2021-10-30] MEDS: Docusate Sodium 100 MG Cap PO PRN (22:24)
[2021-10-31] MEDS: Ibuprofen 800 MG Tab PO PRN (02:33)
[2021-10-31] MEDS: Docusate Sodium 100 MG Cap PO PRN (18:05)
[2021-11-01] MEDS: Ibuprofen 800 MG Tab PO PRN ×2 (09:17→22:38)
[2021-11-01 19:52] VITALS: BP 130/77; PULSE 92
[2021-11-01] MEDS: Docusate Sodium 100 MG Cap PO PRN (22:38)
== END 2021-11-01 23:55 | disposition home or self-care (01) | DRG 807 ==
LOC: MW.OBCHECK 22:04 → MW.OB 22:04 → MW.OBCHECK 22:12 → OBSVTOIN 10-30 19:43 → MW.OB 10-30 22:17
PROVIDERS: ADMIT Obstetrics & Gynecology; ATTEND Obstetrics & Gynecology
PROC: 0KQM0ZZ Repair Perineum Muscle, Open Approach (ICD-10-PCS; principal; 2021-10-30)
PROC: 10E0XZZ Delivery of Products of Conception, External Approach (ICD-10-PCS; 2021-10-30)
PROC: 3E033VJ Introduction of Other Hormone into Peripheral Vein, Percutaneous Approach (ICD-10-PCS; 2021-10-30)
PROC: 10907ZC Drainage of Amniotic Fluid, Therapeutic from Products of Conception, Via Natural or Artificial Opening (ICD-10-PCS; 2021-10-30)
PROC: 3E0R3BZ Introduction of Anesthetic Agent into Spinal Canal, Percutaneous Approach (ICD-10-PCS; 2021-10-30)
PROC: 3E0P7VZ Introduction of Hormone into Female Reproductive, Via Natural or Artificial Opening (ICD-10-PCS; 2021-10-30)
DX: O48.0 Post-term pregnancy (principal); Z37.0 Single live birth; O76 Abnormality in fetal heart rate and rhythm complicating labor and delivery; O26.893 Other specified pregnancy related conditions, third trimester; L29.9 Pruritus, unspecified; O70.1 Second degree perineal laceration during delivery; Z86.16 Personal history of COVID-19; Z88.1 Allergy status to other antibiotic agents; Z88.8 Allergy status to other drugs, medicaments and biological substances; Z3A.40 40 weeks gestation of pregnancy; Z79.899 Other long term (current) drug therapy; Z90.89 Acquired absence of other organs
CPT/HCPCS: 01967; 36415; 51702; 59025; 59409; 82803; 84112; 85014; 85018; 85027; 86592; 86850; 86900; 86901; A9270-GY; J0595; J2590; J2795; J7120

== ENCOUNTER 2021-12-05 20:54 | Emergency (ER) | payer MEDICAID ==
[2021-12-05] MEDS ORDERED: Ibuprofen 600 MG Tab PO ONE (21:11)
[2021-12-05 21:53] LABS: BLOOD UREA NITROGEN,BUN 15 mg/dL (7.0-18.0); CARBON DIOXIDE,CO2 26.1 mmol/L (21.0-32.0); CHLORIDE,CL 104 mmol/L (98-107); GLUCOSE RANDOM 86 mg/dL (74-106); POTASSIUM,K 4.3 mmol/L (3.5-5.1); SODIUM,NA 139 mmol/L (136-145)
[2021-12-05 22:37] VITALS: BP 115/65; PULSE 62
== END 2021-12-05 22:37 | disposition home or self-care (01) ==
LOC: MW.ED 20:54
DX: O99.893 Other specified diseases and conditions complicating puerperium (principal); R07.9 Chest pain, unspecified; Z88.0 Allergy status to penicillin; Z88.8 Allergy status to other drugs, medicaments and biological substances; Z86.16 Personal history of COVID-19
CPT/HCPCS: 36415; 71045; 80053; 84484; 85025; 85379; 93005; 99285; A9270

== ENCOUNTER 2021-12-18 14:19 | Emergency (ER) | payer MEDICAID ==
[2021-12-18] MEDS ORDERED: Ketorolac 60 MG/2 ML SDV IM ONE (15:53)
[2021-12-18 16:35] VITALS: BP 128/71; PULSE 70
== END 2021-12-18 16:50 | disposition home or self-care (01) ==
LOC: MW.ED 14:19
DX: R51.9 Headache, unspecified (principal); Z86.16 Personal history of COVID-19; Z88.0 Allergy status to penicillin; Z88.8 Allergy status to other drugs, medicaments and biological substances; Z88.1 Allergy status to other antibiotic agents
CPT/HCPCS: 96372; 99283; J1885; 99284

== ENCOUNTER 2022-10-21 03:10 | Emergency (ER) | payer MEDICAID ==
[2022-10-21] MEDS ORDERED: Sodium Chloride 0.9% 1,000 ML IV ONE (04:29)
[2022-10-21] MEDS ORDERED: Ondansetron 4 MG/2 ML SDV IVPUSH ONE (04:29)
[2022-10-21] MEDS ORDERED: Ondansetron 4 MG Tab PO ONE (04:29)
[2022-10-21] MEDS ORDERED: Ondansetron 4 MG Tab.DIS ONE (04:33)
[2022-10-21] MEDS ORDERED: Ondansetron 4 MG Tab.DIS PO ONE (04:38)
[2022-10-21] MEDS ORDERED: Iopamidol 755 MG/ML 500 ML Multipack Bottle IVPUSH ONE (04:52)
[2022-10-21 05:27] LABS: CORONAVIRUS COVID-19 NAA NEGATIVE (NEGATIVE); INFLUENZA A NAA NEGATIVE (NEGATIVE); INFLUENZA B NAA NEGATIVE (NEGATIVE); RESPIRATORY SYNCYTIAL VIR NAA NEGATIVE (NEGATIVE)
[2022-10-21 06:13] VITALS: BP 127/62; PULSE 97
== END 2022-10-21 07:02 | disposition home or self-care (01) ==
LOC: MW.ED 03:10
DX: K52.9 Noninfective gastroenteritis and colitis, unspecified (principal); Z88.0 Allergy status to penicillin; Z88.8 Allergy status to other drugs, medicaments and biological substances; Z86.16 Personal history of COVID-19; Z20.822 Contact with and (suspected) exposure to COVID-19
CPT/HCPCS: 0241U; 36415; 74177; 80053; 81003; 81025; 83690; 83735; 85025; 96360; 99284; A9270; J7030; Q9967

== ENCOUNTER 2023-10-13 10:30 | Inpatient (IN) | payer MEDICAID ==
[2023-10-13 11:02] LABS: APPEARANCE,URINE CLEAR; BILIRUBIN,URINE NEGATIVE (NEGATIVE); COLOR,URINE YELLOW; GLUCOSE,URINE NEGATIVE (NEGATIVE); KETONES,URINE NEGATIVE (NEGATIVE); LEUKOCYTE ESTERASE,URINE TRACE (NEGATIVE); NITRITE,URINE NEGATIVE (NEGATIVE); OCCULT BLOOD,URINE NEGATIVE (NEGATIVE); PH,URINE 5.5 (5.0-8.0); PROTEIN,URINE NEGATIVE (NEGATIVE); UROBILINOGEN,URINE 0.2 EU/dL (<2.0)
[2023-10-13] MEDS ORDERED: Water For Irrigation,Sterile 1,000 ML Container IRR PRN (11:18)
[2023-10-13] MEDS ORDERED: Nalbuphine 10 MG/0.5 ML Syringe IVPUSH PRN (11:18)
[2023-10-13] MEDS ORDERED: Carboprost Tromethamine 250 MCG/1 mL Vial IM PRN (11:18)
[2023-10-13] MEDS ORDERED: Lidocaine 1% 50 ML MDV INJECT PRN (11:18)
[2023-10-13] MEDS ORDERED: Misoprostol 200 MCG Tab PO PRN (11:18)
[2023-10-13] MEDS ORDERED: Sodium Chloride 0.9% 10 ML Syringe FLUSH PRN (11:18)
[2023-10-13] MEDS ORDERED: Tranexamic Acid IN NACL,ISO-OS 1,000 MG in Premix Bag 1 BAG IV PRN (11:18)
[2023-10-13] MEDS ORDERED: Sodium Chloride 0.9% 2.5 ML Syringe FLUSH PRN (11:18)
[2023-10-13] MEDS ORDERED: Sodium Chloride 0.9% 20 ML SDV IV PRN (11:18)
[2023-10-13] MEDS ORDERED: Ondansetron 4 MG/2 ML SDV IVPUSH PRN (11:18)
[2023-10-13] MEDS ORDERED: Methylergonovine 0.2 MG/1 ML Amp IM PRN (11:18)
[2023-10-13] MEDS ORDERED: Oxytocin/0.9 % Sodium Chloride 30 UNIT/500 ML BAG IV SCH (11:30)
[2023-10-13 12:03] LABS: HEMATOCRIT 34.9 % (37.0-47.0); HEMOGLOBIN 11.6 g/dL (12.0-16.0); MEAN CORPUSCULAR HEMOGLOBIN 27.1 pg (28.0-32.0); MEAN CORPUSCULAR HGB CONC 33.2 g/dL (32.0-36.0); MEAN CORPUSCULAR VOLUME 81.5 fL (83.0-99.0); MEAN PLATELET VOLUME 11.2 fL (9.4-12.3); PLATELET COUNT,PLT 157 K/uL (150-400); RED BLOOD CELL COUNT 4.28 M/uL (4.10-5.30); WHITE BLOOD CELL COUNT,WBC 9.66 K/uL (3.9-11.3)
[2023-10-13 13:13] LABS: AMPHETAMINES SCREEN, URINE NEGATIVE (CUTOFF=500); BARBITURATE SCREEN,URINE NEGATIVE (CUTOFF=200); BENZODIAZEPINES SCREEN,URINE NEGATIVE (CUTOFF=150); BUPRENORPHINE SCREEN,URINE NEGATIVE (CUTOFF=10); METHADONE SCREEN, URINE NEGATIVE (CUTOFF=200); METHAMPHETAMINES SCREEN, URINE NEGATIVE (CUTOFF=500); OXYCODONE SCREEN,URINE NEGATIVE (CUT0FF=100); PCP SCREEN,URINE NEGATIVE (CUTOFF=25); THC SCREEN,URINE 20 NG/ML NEGATIVE (CUTOFF=50)
[2023-10-13] MEDS: Lactated Ringers 1,000 ML IV SCH (16:08)
[2023-10-13] MEDS: Oxytocin/0.9 % Sodium Chloride 30 UNIT/500 ML BAG IV SCH (18:09)
[2023-10-14] MEDS: ceFAZolin 2 GM in Sodium Chloride 0.9% 50 ML IV ONE ×2 (05:16→14:29)
[2023-10-14] MEDS ORDERED: Phenylephrine HCl 0.5 MG/5 ML AMP IVPUSH PRN (07:55)
[2023-10-14] MEDS ORDERED: ePHEDrine 50 MG/ML SDV IVPUSH PRN ×2 (07:55)
[2023-10-14] MEDS: Ropivacaine HCl/PF 400 MG in Premix Bag 1 BAG EPIDUR SCH (08:43)
[2023-10-14] MEDS: Ondansetron 4 MG Tab.DIS PO PRN (10:09)
[2023-10-14] MEDS ORDERED: Lanolin 100% Cream 7 GM Tube TOP PRN (16:49)
[2023-10-14] MEDS: Phenylephrine HCl 0.5 MG/5 ML AMP ONE (18:21)
[2023-10-14] MEDS: Bupivacaine 0.5% 10 ML SDV ONE (18:21)
[2023-10-14] MEDS: Ropivacaine HCl/PF 200 ML ONE (18:21)
[2023-10-14] MEDS: Ondansetron 4 MG Tab.DIS ONE (18:21)
[2023-10-14] MEDS: Benzocaine/Menthol 20%-0.5% Spray 78 GM Cannister TOP PRN (20:45)
[2023-10-14] MEDS: Witch Hazel Medicated Pads 40/Jar TOP PRN (20:46)
[2023-10-14] MEDS: Acetaminophen 500 MG Tab PO PRN (21:05)
[2023-10-14] MEDS: Ibuprofen 800 MG Tab PO PRN (21:06)
[2023-10-15 05:46] LABS: HEMATOCRIT 30.5 % (37.0-47.0); HEMOGLOBIN 10.1 g/dL (12.0-16.0)
[2023-10-15] MEDS: Docusate Sodium 100 MG Cap PO PRN (19:52)
[2023-10-16 08:22] VITALS: BP 112/68; PULSE 70
== END 2023-10-16 12:13 | disposition home or self-care (01) | DRG 807 ==
LOC: MW.OBCHECK 10:30 → MW.OB 10:35 → MW.OBCHECK 10-14 12:17 → OBSVTOIN 10-14 16:36 → MW.OB 10-14 16:36
PROVIDERS: ADMIT Obstetrics & Gynecology; ATTEND Obstetrics & Gynecology
PROC: 10E0XZZ Delivery of Products of Conception, External Approach (ICD-10-PCS; principal; 2023-10-14)
PROC: 3E0R3BZ Introduction of Anesthetic Agent into Spinal Canal, Percutaneous Approach (ICD-10-PCS; 2023-10-14)
PROC: 00HU33Z Insertion of Infusion Device into Spinal Canal, Percutaneous Approach (ICD-10-PCS; 2023-10-14)
DX: O42.02 Full-term premature rupture of membranes, onset of labor within 24 hours of rupture (principal); Z37.0 Single live birth; Z88.1 Allergy status to other antibiotic agents; Z88.8 Allergy status to other drugs, medicaments and biological substances; Z86.16 Personal history of COVID-19; Z90.89 Acquired absence of other organs; Z3A.41 41 weeks gestation of pregnancy
CPT/HCPCS: 36415; 51702; 59025; 59409; 80305-QW; 81003; 84112; 85014; 85018; 85027; 86592; 86850; 86900; 86901; A9270-GY; J0665; J0690; J2371; J2590; J2795; J3490; J7120

== ENCOUNTER 2023-11-04 00:44 | Day surgery (SDC) | payer MEDICAID ==
[2023-11-04] MEDS: Sodium Chloride 0.9% 1,000 ML IV ONE (01:53)
[2023-11-04] MEDS: Ketorolac 30 MG/ML SDV IVPUSH ONE (01:54)
[2023-11-04] MEDS: Ondansetron 4 MG Tab.DIS PO ONE (01:54)
[2023-11-04] MEDS: Sodium Chloride 0.9% 2.5 ML Syringe FLUSH PRN (01:55)
[2023-11-04] MEDS: Sodium Chloride 0.9% 10 ML Syringe FLUSH PRN (01:55)
[2023-11-04 01:56] LABS: BASOPHILS ABSOLUTE AUTO 0.04 K/uL (0.00-0.20); BASOPHILS PERCENT AUTO 0.4 % (0.0-1.0); EOSINOPHILS ABSOLUTE AUTO 0.07 K/uL (0.00-0.45); EOSINOPHILS PERCENT AUTO 0.7 % (0.0-6.0); HEMOGLOBIN 14.3 g/dL (12.0-16.0); IMMATURE GRAN ABSOLUTE AUTO 0.02 K/uL (0.00-0.05); IMMATURE GRAN PERCENT AUTO 0.2 % (0.0-0.4); LYMPHOCYTES PERCENT AUTO 23.4 % (24.0-44.0); MEAN CORPUSCULAR HEMOGLOBIN 26.8 pg (28.0-32.0); MEAN CORPUSCULAR HGB CONC 33.3 g/dL (32.0-36.0); MEAN CORPUSCULAR VOLUME 80.7 fL (83.0-99.0); MEAN PLATELET VOLUME 10.1 fL (9.4-12.3); MONOCYTES ABSOLUTE AUTO 0.49 K/uL (0.00-0.80); NEUTROPHILS ABSOLUTE AUTO 6.89 K/uL (1.80-7.70); NEUTROPHILS PERCENT AUTO 70.3 % (41.0-71.0); PLATELET COUNT,PLT 201 K/uL (150-400); RED BLOOD CELL COUNT 5.33 M/uL (4.10-5.30); WHITE BLOOD CELL COUNT,WBC 9.81 K/uL (3.9-11.3)
[2023-11-04 02:30] LABS: A/G RATIO 1.2 (0.9-1.6); BILIRUBIN TOTAL 0.6 mg/dL (0.2-1.0); CALCIUM 9.2 mg/dL (8.5-10.1); CARBON DIOXIDE,CO2 27.9 mmol/L (21.0-32.0); CREATININE 0.7 mg/dL (0.6-1.0); EST CRCL DRUG DOSING (CG) 107.93 mL/min; PROTEIN TOTAL,TP 7.3 g/dL (6.4-8.2)
[2023-11-04] MEDS: Iopamidol 755 MG/ML 500 ML Multipack Bottle IVPUSH STA (02:56)
[2023-11-04 03:09] LABS: APPEARANCE,URINE CLEAR; BILIRUBIN,URINE NEGATIVE (NEGATIVE); COLOR,URINE YELLOW; GLUCOSE,URINE NEGATIVE (NEGATIVE); KETONES,URINE NEGATIVE (NEGATIVE); LEUKOCYTE ESTERASE,URINE NEGATIVE (NEGATIVE); NITRITE,URINE NEGATIVE (NEGATIVE); OCCULT BLOOD,URINE SMALL (NEGATIVE); PROTEIN,URINE NEGATIVE (NEGATIVE); UROBILINOGEN,URINE 0.2 EU/dL (<2.0)
[2023-11-04 03:22] LABS: BACTERIA,URINE RARE (NEGATIVE); EPITHELIAL CELLS,URINE RARE (NONE-FEW); WBC,URINE 0-2 (0-5/HPF)
[2023-11-04] MEDS: Cefepime 2 GM in Sodium Chloride 0.9% 50 ML IV ONE (03:28)
[2023-11-04] MEDS ORDERED: Naloxone 0.4 MG/ML SDV IVPUSH PRN ×2 (03:43→08:14)
[2023-11-04] MEDS ORDERED: Ondansetron 4 MG/2 ML SDV IVPUSH PRN ×2 (03:43→08:14)
[2023-11-04] MEDS: Lactated Ringers 1,000 ML IV SCH (04:15)
[2023-11-04] MEDS: HYDROmorphone 1 MG/ML Syringe IVPUSH PRN (06:37)
[2023-11-04] MEDS ORDERED: HYDROmorphone 1 MG/ML Syringe IVPUSH PRN (08:14)
[2023-11-04] MEDS ORDERED: Morphine 2 MG/ML SYRINGE IVPUSH PRN (08:14)
[2023-11-04] MEDS ORDERED: droPERidol 5 MG/2 ML SDV IVPUSH PRN (08:14)
[2023-11-04] MEDS ORDERED: Metoclopramide 10 MG/2 ML SDV IVPUSH PRN (08:14)
[2023-11-04] MEDS ORDERED: Albuterol 0.083% 2.5 MG/3 ML Neb Soln NEB PRN (08:14)
[2023-11-04] MEDS ORDERED: fentaNYL 50 MCG/ML SDV IVPUSH PRN (08:14)
[2023-11-04] MEDS: metroNIDAZOLE/Normal Saline 500 MG in Premix Bag 1 BAG IV SCH (08:54)
[2023-11-04] MEDS: Ciprofloxacin in D5W 400 MG in Premix Bag 1 BAG IV SCH (09:22)
[2023-11-04] MEDS ORDERED: propofoL 50 ML ONE (11:35)
[2023-11-04] MEDS ORDERED: Propofol 200 MG/20 ML SDV ONE (11:36)
[2023-11-04] MEDS ORDERED: Bupivacaine 0.5% 30 ML SDV ONE (11:37)
[2023-11-04] MEDS ORDERED: fentaNYL 100 MCG/2 ML SDV ONE (11:38)
[2023-11-04] MEDS ORDERED: Water For Injection, Sterile 20 ML ONE (11:39)
[2023-11-04] MEDS ORDERED: Ropivacaine 0.5% 5 MG/ML 30 ML SDV ONE (11:46)
[2023-11-04] MEDS ORDERED: Bupivacaine 0.25% 30 ML SDV ONE (11:46)
[2023-11-04] MEDS ORDERED: Rocuronium Bromide 50 MG/5 ML Syringe ONE ×2 (12:06→12:28)
[2023-11-04] MEDS ORDERED: Ondansetron 4 MG/2 ML SDV ONE (12:11)
[2023-11-04] MEDS ORDERED: Dexamethasone 4 MG/ML 5 ML MDV ONE (12:11)
[2023-11-04] MEDS ORDERED: Magnesium Sulfate (4.06 MEQ/ML) 5 GM/10 ML SDV ONE (12:17)
[2023-11-04] MEDS ORDERED: dexmedeTOMIDine HCl 200 MCG/2 ML SDV IV ONE (12:30)
[2023-11-04] MEDS ORDERED: Ketorolac 30 MG/ML SDV ONE (12:40)
[2023-11-04] MEDS ORDERED: Sugammadex Sodium 200 MG/2 ML VIAL IV ONE (12:40)
[2023-11-04] MEDS: Lactated Ringers 500 ML IV ONE (17:06)
[2023-11-04] MEDS: Acetaminophen/oxyCODONE 325-5 MG Tab PO PRN (18:17)
[2023-11-04 19:52] VITALS: BP 105/66; PULSE 51
== END 2023-11-04 19:30 | disposition home or self-care (01) ==
LOC: MW.ED 00:44 → MW.MS 03:18 → MW.SDS 03:18
PROVIDERS: ATTEND Surgery
DX: K35.80 Unspecified acute appendicitis (principal); K42.9 Umbilical hernia without obstruction or gangrene; K21.9 Gastro-esophageal reflux disease without esophagitis; R10.9 Unspecified abdominal pain; Z79.899 Other long term (current) drug therapy; Z88.9 Allergy status to unspecified drugs, medicaments and biological substances; Z88.0 Allergy status to penicillin
CPT/HCPCS: 36415; 44970; 74177; 80053; 81001; 83690; 85025; 96361; 96374; 96375; 99285; A9270; J0131; J0665; J0692; J0744; J1100; J1170; J1836; J1885; J2405; J2704; J2795; J3010; J3475; J3490; J7030; J7120; Q9967; 00840; 64488

== ENCOUNTER 2023-12-11 14:43 | Emergency (ER) | payer MEDICAID ==
[2023-12-11 16:14] VITALS: BP 127/73; PULSE 71
== END 2023-12-11 16:14 | disposition home or self-care (01) ==
LOC: MW.ED 14:43
DX: S09.90XA Unspecified injury of head, initial encounter (principal); Z75.8 Other problems related to medical facilities and other health care; Z88.0 Allergy status to penicillin; Z88.8 Allergy status to other drugs, medicaments and biological substances; W20.8XXA Other cause of strike by thrown, projected or falling object, initial encounter
CPT/HCPCS: 99282; 99283

== ENCOUNTER 2024-05-04 11:07 | Day surgery (SDC) | payer MEDICAID ==
[~2024-05-04 11:07] MED LIST: Sodium Chloride 0.9% 10 ML Syringe FLUSH PRN; Sodium Chloride 0.9% 2.5 ML Syringe FLUSH PRN; Sodium Chloride 0.9% 20 ML SDV IV PRN
[2024-05-04] MEDS: Lactated Ringers 1,000 ML IV SCH (11:44)
[2024-05-04] MEDS ORDERED: propofoL 50 ML ONE (13:44)
[2024-05-04] MEDS ORDERED: Lidocaine 2% 5 ML SDV ONE (13:44)
[2024-05-04] MEDS ORDERED: Midazolam 1 MG/ML 2 ML SDV ONE (13:45)
[2024-05-04 15:05] VITALS: BP 110/56; PULSE 56
== END 2024-05-04 15:09 | disposition home or self-care (01) ==
LOC: MW.SDS 11:07
PROVIDERS: ATTEND Surgery
DX: D12.5 Benign neoplasm of sigmoid colon (principal); K29.50 Unspecified chronic gastritis without bleeding; K21.9 Gastro-esophageal reflux disease without esophagitis; K59.00 Constipation, unspecified; E66.9 Obesity, unspecified; Z88.1 Allergy status to other antibiotic agents; Z88.8 Allergy status to other drugs, medicaments and biological substances; Z79.899 Other long term (current) drug therapy; Z68.26 Body mass index [BMI] 26.0-26.9, adult
CPT/HCPCS: 43239; 45380; 81025; J2250; J2704; J7120; 00813; J3490